=== PATIENT | male | born 1990 | race Caucasian/White ===

== ENCOUNTER → 2021-11-29 | Outpatient (CLI) | payer OTHER ==
--- NOTE | 2021-11-29 11:36 | RAD ---
EXAM: Right hand, 3 views. HISTORY: Pain. Worker's Compensation. COMPARISON: None. FINDINGS: 3 views of the right hand are obtained. There is no fracture, dislocation or subluxation. T he alignment and joint spaces are unremarkable. There is no radiodense foreign body. IMPRESSION: No acute osseous finding. Electronically signed by: Shirley Gonzalez MD (11/29/2021 11:34 AM) [id number]
== END ==
LOC: EDBD 11:14 → RAD 11:14
PROVIDERS: ATTEND Nurse Practitioner Family
DX: S69.91XA Unspecified injury of right wrist, hand and finger(s), initial encounter (principal); X58.XXXA Exposure to other specified factors, initial encounter; Y93.89 Activity, other specified; Y92.89 Other specified places as the place of occurrence of the external cause; Y99.8 Other external cause status
CPT/HCPCS: 73130